=== PATIENT | female | born 1990 | race Caucasian/White ===

== ENCOUNTER 2016-08-09 02:03 | Inpatient (IN) | payer BC ==
[2016-08-09 02:40] VITALS: BP 127/94
[2016-08-09] MEDS ORDERED: HYDROmorphone 1 mg/mL 1mL Syr IVP PRN (02:46)
[2016-08-09] MEDS: Sodium Chloride 0.9% 1,000 ML IV SCH ×2 (03:13→16:16)
[2016-08-09] MEDS ORDERED: Ampicillin 2 GM in Sodium Chloride 0.9% 100 ML IV SCH (05:00)
[2016-08-09 07:52] LABS: INR 0.99 (0.5-1.4); PROTHROMBIN TIME (TEST) 10.3 SECONDS (9.5-11.5)
[2016-08-09 07:53] LABS: ALB/GLOB RATIO 1.1 (1.0-1.8); ALKALINE PHOSPHATASE 64 U/L (34-104); BILIRUBIN,TOTAL 0.6 mg/dL (0.3-1.0); BUN - UREA NITROGEN 13 mg/dL (7-25); BUN/CREATININE RATIO 18.6; CALCIUM SERUM 8.9 mg/dL (8.6-10.3); CARBON DIOXIDE 26.7 mEq/L (21.0-31.0); CHLORIDE 108 mEq/L (98-107); CREATININE - SERUM 0.7 mg/dL (0.6-1.2); GLUCOSE 98 mg/dL (70-105); POTASSIUM SERUM 3.7 mEq/L (3.5-5.1); SGOT 16 U/L (13-39); SGPT/ALT 14 U/L (7-52); SODIUM SERUM 139 mEq/L (136-145)
[2016-08-09 07:59] LABS: % BASOPHILS 0.5 % (0.0-2.0); % EOSINOPHILS 2.7 % (0.0-5.0); % LYMPHOCYTES 23.2 % (20.0-50.0); % MONOCYTES 11.8 % (2.0-10.0); % NEUTROPHILS 61.8 % (40.0-80.0); HEMATOCRIT 38.5 % (35.0-45.0); HEMOGLOBIN 12.9 gm/dL (11.7-15.5); MEAN CELL VOLUME 92.2 fl (81-100); MEAN CORPUSCULAR HEMOGLOBIN 30.8 pg (27.0-31.0); MEAN CORPUSCULAR HGB CONC 33.4 pg (28.0-36.0); MEAN PLATELET VOLUME 9.7 fl; PLATELET COUNT 311 Th/cmm (150-400); RED BLOOD COUNT 4.18 Mil/cmm (3.80-5.10); RED CELL DISTRIBUTION WIDTH 13.4 % (11.5-20.0); WHITE BLOOD COUNT 8.1 Th/cmm (4.8-10.8)
[2016-08-09] MEDS: HYDROmorphone 1 mg/mL 1mL Syr IVP PRN ×4 (08:47→23:30)
[2016-08-09] MEDS ORDERED: Meperidine 25 mg/mL 1mL Syr IVP PRN (10:43)
[2016-08-09] MEDS ORDERED: Lactated Ringer 1,000 ML IV SCH (10:45)
[2016-08-09] MEDS ORDERED: Midazolam 1mg/ml 2 ml vial IV ONE (10:46)
[2016-08-09] MEDS ORDERED: Meperidine 50 mg/mL 1mL Syr ONE ×2 (10:47→12:18)
[2016-08-09] MEDS ORDERED: Lidocaine 2% Gel 5 mL TP ONE (10:48)
[2016-08-09] MEDS ORDERED: Bupivacaine 0.5% W/Ep 10 mL Vial INJ ONE (10:50)
[2016-08-09] MEDS ORDERED: Neostigmine 10mg/10mL Vial ONE (11:45)
--- NOTE | 2016-08-09 12:03 | History & Physical ---
ADMIT DATE: 08/09/2016 CHIEF COMPLAINT: Right lower abdominal pain. HISTORY OF PRESENT ILLNESS: This is the case of 26-year-old female who referred that 2 months ago she was 1 week at [facility] where she was treated for the same pain. She had treatment with antibiotic. When she left the hospital, everything was fine. Yesterday she started with the same pain, reason why she went to Emergency Room for evaluation and treatment. When she was evaluated, CT scan was done and CT scan reported was soft tissue density and fat adjacent to the appendix ____ for preparation, ____ appendicitis. No ____ abscess identified. No extraluminal gas, no bowel obstruction. UD in place, not obstructive left renal stone and no hydronephrosis. When they diagnosed appendicitis, the patient was transferred to the hospital to continue treatment. PAST MEDICAL HISTORY: Unremarkable. SOCIAL HISTORY: The patient denies illegal use of drugs. The patient lives at home with family. PAST SURGICAL HISTORY: None. ALLERGIES: No known allergies. MEDICATIONS: None. REVIEW OF SYSTEMS: LUNGS: The patient denies shortness of breath. HEART: The patient denies chest pain. ABDOMEN: The patient referred right lower abdominal pain. EXTREMITIES: No edema. NEUROLOGIC: The patient is awake, alert. PHYSICAL EXAMINATION: GENERAL: Does reveal a fairly nourished and developed female, awake, alert, in some distress secondary to abdominal pain. LUNGS: Bilateral air entry. No wheezing, no crackles. HEART: Regular rate and rhythm. ABDOMEN: Soft and tender on palpation in her right lower abdomen. Bowel sound is present. EXTREMITIES: No edema. NEUROLOGICAL: The patient is awake, alert. Nerves 2-12 grossly intact. IMPRESSION: Appendicitis. PLAN: 1. The patient will be admitted in the medical surgical floor. 2. IV normal saline. 3. Ampicillin. 4. Dilaudid for pain control. 5. NPO. 6. Consult with Dr. Oneal, surgeon. 7. CBC, CMP, INR and PT at a.m. JOB# [id number]
--- NOTE | 2016-08-09 12:51 | Consultation ---
DATE OF CONSULTATION: 08/09/2016 REFERRING PHYSICIAN: Dr. Mena. REASON FOR CONSULTATION: Abdominal pain. Thank you for referring this patient to me. HISTORY OF PRESENT ILLNESS: A 26-year-old female who started having abdominal pain in the last 24 hours associated nausea and vomiting. No diarrhea. The patient went to [facility] in [place] and underwent a CT scan of the abdomen, which was reported as possible perforated appendicitis. She was sent to this facility for admission. She claims that 2 months ago, she was at [facility] in [place] for similar episode and was kept 5 days in the hospital with IV antibiotics to resolve what was diagnosed then as well as acute appendicitis. PAST MEDICAL HISTORY: Unremarkable. She has one child. ALLERGIES TO MEDICATION: None. PHYSICAL EXAMINATION: Tender in the right lower quadrant with minimal rebound. LABORATORY TESTS: Repeated here at this facility were essentially normal. test is negative. Informed consent discussed with the patient and the boyfriend regarding possible complications, particularly if perforation is encountered. This might include bleeding, infection, peritonitis, adhesions, others related to anesthesia. [facility]# [id number]
[2016-08-09] MEDS ORDERED: Meperidine 25 mg/mL 1mL Syr ONE (12:54)
--- NOTE | 2016-08-09 13:00 | Operative Report ---
DATE OF SURGERY: 08/09/2016 PREOPERATIVE DIAGNOSES: 1. Acute appendicitis. 2. Obesity. 3. Status post appendectomy. 4. Autoimmune disease. POSTOPERATIVE DIAGNOSES: 1. Acute appendicitis. 2. Obesity. 3. Status post appendectomy. 4. Autoimmune disease. OPERATION DONE: Laparoscopic appendectomy. SURGEON: Kimmy Holland M.D. ANESTHESIA: General. ANESTHESIOLOGIST: Leyla Orta. Informed consent discussed with the patient prior to surgery. OPERATIVE FINDINGS: Inflamed appendix with no free perforation. There was, however, some blood in the area of the appendix. The etiology of this is unclear. Culture will be done of the appendix removed. DESCRIPTION OF PROCEDURE: The patient was given general anesthesia. The abdomen was prepped with ChloraPrep and draped in appropriate manner. An incision was made below the umbilicus all the way to the fascia and a Veress needle was inserted. Insufflation with CO2 was carried out successfully. A 10 mm trocar was placed through this incision. The scope was introduced. There was good visualization of the intra-abdominal cavity. A 5 mm trocar was placed in the midline at the lower abdomen and another 12 mm trocar was placed in the left flank. The operating table was lowered at the head and turned to the left side. The appendix was easily identified. This was inflamed, but no perforation was noted. The mesoappendix was serially transected utilizing EnSeal and the appendix was transected utilizing Endo MICHELLE. The staple line was checked and no bleeding was noted. Irrigation with saline solution was carried out. Cultures were taken of the appendix removed. The incision was closed with interrupted sutures of 0 Vicryl for the fascia. The abdominal incision was closed with 4-0 Vicryl following infiltration of 0.5% Marcaine. The patient tolerated the procedure well. JOB# [id number]
--- NOTE | 2016-08-09 22:44 | Admit Criteria Form ---
Admit Criteria Forms - Admit Criteria Diagnosis: ABDOMINAL PAIN Clinical Indications for Admission to Inpatient Care (Place 'X' for any and all applicable criteria): Admission is indicated for ANY ONE of the following(1)(2)(3)(4)(5): [ ]I. Inpatient admission required rather than observation care (Also use Abdominal Pain: Observation Care, as appropriate) because of ANY ONE of the following: [ ]a) Severe pain requiring acute inpatient management [ ]b) Identification of etiology/finding that requires inpatient care (eg, aortic dissection, free air) [ ]c) Absent bowel sounds with complete ileus(6) [ ]d) Suspected toxic megacolon [ ]e) Severe electrolyte abnormalities requiring inpatient care [ ]f) High fever or infection requiring inpatient admission as indicated by ANY ONE of following(7)(8): [ ] i) Appropriate outpatient or observational care antimicrobial treatment unavailable, not effective, or not feasible [ ] ii) Documented bacteremia [ ] iii) Temperature > 104.9 degrees F (oral) [ ] iv) T >103.1 F (oral) or < 96.8 F(rectal) that does not respond to all emergency treatment measures [ ]g) Signs of intestinal obstruction [B] [ ]h) Hemodynamic instability [ ]i) IV fluid to replace significant ongoing losses (greater than 3 L/m2 per day) (12)(13) [ ]j) Percutaneous or open drainage (eg, abscess, biliary tract ) procedures [ ]k) Parenteral nutrition regimen that must be implemented on inpatient basis [ ]l) Other condition,treatment or monitoring requiring inpatient admission. [ ]II. Peritoneal signs present [X]III. Surgery needed that cannot be performed on an ambulatory basis. [ ]IV. Evaluation requires patient to not eat or drink for extended period ( eg, more than 24 hours). [ ]V. Contraindications and/or Inappropriate clinical situations for Observational Care in patients with abdominal pain, when ANY ONE of the following is required: [ ]a) Thorough evaluation is required to prevent catastrophic events due to delays in diagnosing (e.g.Mesenteric ischemia) 1,3 [ ]b) Patient with severe pathology or with chronic symptoms unlikely to improve in the ED stay (3) [ ]. General contraindications and/or Inappropriate clinical situations for Observational Care in patients with abdominal pain, when ANY ONE of the following is required: [ ]a) Prediction of prolongation of LOS based on ANY ONE of the following may be considered as a contraindication for observational care 2, 3, 4, 5, 6, 7, 8, 9, 10, 11 [ ]i) Age > 65 yrs. [ ]ii) Patient arriving by ambulance [ ]iii) Patient with high acuity [ ]iv) Patient requiring vital sign monitoring [ ]v) Patient on IV medication [ ]b) Systolic blood pressures 180mmHg 3,12 [ ]c) Patient with altered mental status including delirium and other alteration of consciousness, (3) [ ]d) Patient whose discharge disposition will be to a fdc home or rehabilitation home should not be managed in Emergency Department Observation Unit. CMS rule requires 3 days hospital stay before such placement.3,13 [ ]e) Patient with failure to thrive due to broad array of etiologies 3,16,17 [ ]f) Inability to ambulate 3,14 Extended stay beyond goal length of stay may be needed for(2)(3): [ ]a) Persistent abdominal pain with suspected intra-abdominal process [ ]b) Diagnosed condition requiring continued stay (e.g., pancreatitis, complicated diverticulitis) [ ]c) Surgery (e.g., colectomy) The original [facility] content created by [employer] has been revised. The portions of the content which have been revised are identified through the use of italic text or in bold, and [facility] has neither reviewed nor approved the modified material.All other unmodified content is copyright [facility] [employer] [facility]. Please see references footnoted in the original [facility] [employer] edition 2016 Admit Criteria Met?: Yes
[2016-08-10] MEDS: HYDROmorphone 1 mg/mL 1mL Syr IVP PRN ×2 (03:53→08:03)
[2016-08-10 06:20] LABS: HEMATOCRIT 38.2 % (35.0-45.0); HEMOGLOBIN 12.7 gm/dL (11.7-15.5); MEAN CELL VOLUME 92.1 fl (81-100); MEAN CORPUSCULAR HEMOGLOBIN 30.7 pg (27.0-31.0); MEAN CORPUSCULAR HGB CONC 33.3 pg (28.0-36.0); MEAN PLATELET VOLUME 9.7 fl; PLATELET COUNT 254 Th/cmm (150-400); RED BLOOD COUNT 4.14 Mil/cmm (3.80-5.10)
[2016-08-10 06:32] LABS: ALB/GLOB RATIO 1.1 (1.0-1.8); ALKALINE PHOSPHATASE 69 U/L (34-104); ANION GAP 6.4 (7.0-16.0); BILIRUBIN,TOTAL 0.7 mg/dL (0.3-1.0); BUN - UREA NITROGEN 9 mg/dL (7-25); BUN/CREATININE RATIO 12.9; CALCIUM SERUM 8.9 mg/dL (8.6-10.3); CARBON DIOXIDE 29.3 mEq/L (21.0-31.0); CHLORIDE 104 mEq/L (98-107); CREATININE - SERUM 0.7 mg/dL (0.6-1.2); GLUCOSE 94 mg/dL (70-105); POTASSIUM SERUM 3.7 mEq/L (3.5-5.1); SGOT 15 U/L (13-39); SGPT/ALT 13 U/L (7-52); SODIUM SERUM 136 mEq/L (136-145)
[2016-08-10 07:46] LABS: EOSINOPHIL 2 % (0-5); NEUTROPHILS 69 % (40-80); PLATELET ESTIMATE ADEQUATE (NORMAL); PLATELET MORPHOLOGY GIANT PLATELETS SEEN (NORMAL); TOTAL CELLS COUNTED 100
--- NOTE | 2016-08-10 09:10 | General Progress Note ---
Subjective - Review of Systems Service Date: 08/10/16 Subjective: I am better Objective - Results Result Diagrams: 08/10/16 05:26 08/10/16 05:26 Recent Labs: Laboratory Last Values WBC 9.0 Th/cmm (4.8-10.8) 08/10/16 05:26 RBC 4.14 Mil/cmm (3.80-5.10) 08/10/16 05:26 Hgb 12.7 gm/dL (11.7-15.5) 08/10/16 05:26 Hct 38.2 % (35.0-45.0) 08/10/16 05:26 MCV 92.1 fl (81-100) 08/10/16 05:26 MCH 30.7 pg (27.0-31.0) 08/10/16 05:26 MCHC Differential 33.3 pg (28.0-36.0) 08/10/16 05:26 RDW 13.0 % (11.5-20.0) 08/10/16 05:26 Plt Count 254 Th/cmm (150-400) 08/10/16 05:26 MPV 9.7 fl 08/10/16 05:26 Neutrophils % 61.8 % (40.0-80.0) 08/09/16 07:10 Lymphocytes % 23.2 % (20.0-50.0) 08/09/16 07:10 Monocytes % 11.8 % (2.0-10.0) H 08/09/16 07:10 Eosinophils % 2.7 % (0.0-5.0) 08/09/16 07:10 Basophils % 0.5 % (0.0-2.0) 08/09/16 07:10 Neutrophils (Manual) 69 % (40-80) 08/10/16 05:26 Lymphocytes 18 % (20-50) L 08/10/16 05:26 Monocytes 11 % (2-10) H 08/10/16 05:26 Eosinophils 2 % (0-5) 08/10/16 05:26 Platelet Estimate ADEQUATE (NORMAL) 08/10/16 05:26 Platelet Morphology GIANT PLATELETS SEEN (NORMAL) 08/10/16 05:26 RBC Morph Micro Appear NORMAL (NORMAL) 08/10/16 05:26 PT 10.3 SECONDS (9.5-11.5) 08/09/16 07:10 INR 0.99 (0.5-1.4) 08/09/16 07:10 Sodium 136 mEq/L (136-145) 08/10/16 05:26 Potassium 3.7 mEq/L (3.5-5.1) 08/10/16 05:26 Chloride 104 mEq/L (98-107) 08/10/16 05:26 Carbon Dioxide 29.3 mEq/L (21.0-31.0) 08/10/16 05:26 Anion Gap 6.4 (7.0-16.0) L 08/10/16 05:26 BUN 9 mg/dL (7-25) 08/10/16 05:26 Creatinine 0.7 mg/dL (0.6-1.2) 08/10/16 05:26 Est GFR ( Amer) > 60.0 ml/min (>90) 08/10/16 05:26 Est GFR (Non-Af Amer) > 60.0 ml/min 08/10/16 05:26 BUN/Creatinine Ratio 12.9 08/10/16 05:26 Glucose 94 mg/dL (70-105) 08/10/16 05:26 Calcium 8.9 mg/dL (8.6-10.3) 08/10/16 05:26 Total Bilirubin 0.7 mg/dL (0.3-1.0) 08/10/16 05:26 AST 15 U/L (13-39) 08/10/16 05:26 ALT 13 U/L (7-52) 08/10/16 05:26 Alkaline Phosphatase 69 U/L (34-104) 08/10/16 05:26 Total Protein 6.7 gm/dL (6.0-8.3) 08/10/16 05:26 Albumin 3.5 gm/dL (3.7-5.3) L 08/10/16 05:26 Globulin 3.2 gm/dL 08/10/16 05:26 Albumin/Globulin Ratio 1.1 (1.0-1.8) 08/10/16 05:26 Serum , Qual NEGATIVE (NEGATIVE) 08/09/16 07:10 - Physical Exam Vitals and I&O: Vital Signs Temp 97.9 F 08/10/16 04:00 Pulse 68 08/10/16 04:00 Resp 20 08/10/16 04:00 BP 108/63 08/10/16 04:00 Pulse Ox 95 08/10/16 04:00 Intake & Output 08/09/16 08/10/16 08/10/16 18:59 06:59 18:59 Intake Total 1178.75 200 Balance 1178.75 200 Intake: Intake, IV Amount 1178.75 200 Ampicillin 2 gm In Sodium 200 200 Chloride 0.9% 100 ml @ 100 mls/hr IV Q6H COUNT INCLUDES THE [facility] Rx# :[id number] Sodium Chloride 0.9% 1, 978.75 000 ml @ 75 mls/hr IV . [id number] COUNT INCLUDES THE [facility] Rx#:[id number] Active Medications: Current Medications Acetaminophen (Tylenol 650mg Supp) 650 mg RC Q6H PRN PRN Reason: Pain (Moderate) Stop: 10/08/16 02:45 Hydromorphone HCl (Dilaudid) 1 mg IVP Q4HR PRN PRN Reason: Pain (Severe) Stop: 10/08/16 02:45 Last Admin: 08/10/16 08:03 Dose: 1 mg Sodium Chloride (Nacl 0.9%) 1,000 mls @ 75 mls/hr IV .[id number] CORNELIA Stop: 10/08/16 02:04 Last Admin: 08/09/16 16:16 Dose: 75 mls/hr Ampicillin 2 gm/ Sodium (Chloride) 100 mls @ 100 mls/hr IV Q6H [place] Stop: 10/08/16 07:59 Last Admin: 08/10/16 08:03 Dose: 100 mls/hr Lactated Ringer's (Lactated Ringer) 1,000 mls @ 0 mls/hr IV .Q0M CORNELIA PRN Reason: TKO Stop: 08/10/16 10:44 Meperidine HCl (Demerol) 12.5 mg IVP UD PRN PRN Reason: POST-OP PAIN Stop: 08/10/16 10:42 General: Alert, Oriented x3, Cooperative, No acute distress HEENT: Atraumatic Neck: Supple Cardiovascular: Regular rate Lungs: Clear to auscultation Abdomen: Bowel sounds, Soft, Other (Surgical wound clran) Extremities: Other (No edema) Neurological: Normal gait Skin: Other (Warm and dry) Psych/Mental Status: Mental status NL - Procedures Procedures: Procedures Procedure Code Date LAPAROSCOPY APPENDECTOMY 90149 08/09/16 RESECTION OF APPENDIX, PERCUTANEOUS ENDOSCOPIC APPROACH [id number] 08/09/16 Assessment/Plan - Assessment Assessment: Patient is awake, alert, calm in no acute distress. Patient is eating and passing gas. - Plan Plan: Patient will be DC is Dr. Oneal is agree.
--- NOTE | 2016-08-10 13:18 | General Progress Note ---
Subjective - Review of Systems Service Date: 08/10/16 Events since last encounter: labs ok, may DC Objective - Results Result Diagrams: 08/10/16 05:26 08/10/16 05:26 Recent Labs: Laboratory Last Values WBC 9.0 Th/cmm (4.8-10.8) 08/10/16 05:26 RBC 4.14 Mil/cmm (3.80-5.10) 08/10/16 05:26 Hgb 12.7 gm/dL (11.7-15.5) 08/10/16 05:26 Hct 38.2 % (35.0-45.0) 08/10/16 05:26 MCV 92.1 fl (81-100) 08/10/16 05:26 MCH 30.7 pg (27.0-31.0) 08/10/16 05:26 MCHC Differential 33.3 pg (28.0-36.0) 08/10/16 05:26 RDW 13.0 % (11.5-20.0) 08/10/16 05:26 Plt Count 254 Th/cmm (150-400) 08/10/16 05:26 MPV 9.7 fl 08/10/16 05:26 Neutrophils % 61.8 % (40.0-80.0) 08/09/16 07:10 Lymphocytes % 23.2 % (20.0-50.0) 08/09/16 07:10 Monocytes % 11.8 % (2.0-10.0) H 08/09/16 07:10 Eosinophils % 2.7 % (0.0-5.0) 08/09/16 07:10 Basophils % 0.5 % (0.0-2.0) 08/09/16 07:10 Neutrophils (Manual) 69 % (40-80) 08/10/16 05:26 Lymphocytes 18 % (20-50) L 08/10/16 05:26 Monocytes 11 % (2-10) H 08/10/16 05:26 Eosinophils 2 % (0-5) 08/10/16 05:26 Platelet Estimate ADEQUATE (NORMAL) 08/10/16 05:26 Platelet Morphology GIANT PLATELETS SEEN (NORMAL) 08/10/16 05:26 RBC Morph Micro Appear NORMAL (NORMAL) 08/10/16 05:26 PT 10.3 SECONDS (9.5-11.5) 08/09/16 07:10 INR 0.99 (0.5-1.4) 08/09/16 07:10 Sodium 136 mEq/L (136-145) 08/10/16 05:26 Potassium 3.7 mEq/L (3.5-5.1) 08/10/16 05:26 Chloride 104 mEq/L (98-107) 08/10/16 05:26 Carbon Dioxide 29.3 mEq/L (21.0-31.0) 08/10/16 05:26 Anion Gap 6.4 (7.0-16.0) L 08/10/16 05:26 BUN 9 mg/dL (7-25) 08/10/16 05:26 Creatinine 0.7 mg/dL (0.6-1.2) 08/10/16 05:26 Est GFR ( Amer) > 60.0 ml/min (>90) 08/10/16 05:26 Est GFR (Non-Af Amer) > 60.0 ml/min 08/10/16 05:26 BUN/Creatinine Ratio 12.9 08/10/16 05:26 Glucose 94 mg/dL (70-105) 08/10/16 05:26 Calcium 8.9 mg/dL (8.6-10.3) 08/10/16 05:26 Total Bilirubin 0.7 mg/dL (0.3-1.0) 08/10/16 05:26 AST 15 U/L (13-39) 08/10/16 05:26 ALT 13 U/L (7-52) 08/10/16 05:26 Alkaline Phosphatase 69 U/L (34-104) 08/10/16 05:26 Total Protein 6.7 gm/dL (6.0-8.3) 08/10/16 05:26 Albumin 3.5 gm/dL (3.7-5.3) L 08/10/16 05:26 Globulin 3.2 gm/dL 08/10/16 05:26 Albumin/Globulin Ratio 1.1 (1.0-1.8) 08/10/16 05:26 Serum , Qual NEGATIVE (NEGATIVE) 08/09/16 07:10 - Physical Exam Vitals and I&O: Vital Signs Temp 98.2 F 08/10/16 08:00 Pulse 72 08/10/16 08:00 Resp 19 08/10/16 08:00 BP 121/66 08/10/16 08:00 Pulse Ox 100 08/10/16 08:00 Intake & Output 08/09/16 08/10/16 08/10/16 18:59 06:59 18:59 Intake Total 1178.75 200 Balance 1178.75 200 Intake: Intake, IV Amount 1178.75 200 Ampicillin 2 gm In Sodium 200 200 Chloride 0.9% 100 ml @ 100 mls/hr IV Q6H [facility] Rx# :[id number] Sodium Chloride 0.9% 1, 978.75 000 ml @ 75 mls/hr IV . [id number] [facility] Rx#:[id number] Active Medications: Current Medications Acetaminophen (Tylenol 650mg Supp) 650 mg RC Q6H PRN PRN Reason: Pain (Moderate) Stop: 10/08/16 02:45 Ampicillin 2 gm/ Sodium (Chloride) 100 mls @ 100 mls/hr IV Q6H [facility] Stop: 10/08/16 07:59 Last Admin: 08/10/16 08:03 Dose: 100 mls/hr Ibuprofen (Motrin) 800 mg PO TIDWM [facility] Stop: 10/09/16 11:59 Last Admin: 08/10/16 12:37 Dose: 800 mg - Procedures Procedures: Procedures Procedure Code Date LAPAROSCOPY APPENDECTOMY 11340 08/09/16 RESECTION OF APPENDIX, PERCUTANEOUS ENDOSCOPIC APPROACH [id number] 08/09/16
--- NOTE | 2016-08-10 13:29 | Pathology Report ---
[id number] Collection Date: 08/09/2016 Surgeon: Dr. Anjum Oneal Specimen Description: Appendix Gross Description: Received in formalin is a 6 cm in length x 1.0 cm in diameter appendix with a slightly indurated giraldo-brownlee outer surface. A small portion of attached fatty tissue is also appreciated. Sectioning shows an intact appendix wall and lumen with focal fibrous adhesions noted on the outer surface of the specimen. Night Order Selector sections are submitted in two cassettes labeled A1 and A2. Microscopic Description: The histologic sections show appendix with intact wall and lumen. There is acute and chronic inflammation seen in patchy areas throughout the appendix with most of the acute inflammation appreciated on the outer peritoneal surface where there are fibrous adhesions. Diagnosis: Acute appendicitis. [facility]# [id number] [facility]
== END 2016-08-10 14:00 | disposition home or self-care (01) | DRG 342 ==
LOC: TELE 02:03 → MSI 07:38
PROVIDERS: ADMIT General Practice; ATTEND General Practice
PROC: 0DTJ4ZZ Resection of Appendix, Percutaneous Endoscopic Approach (ICD-10-PCS; principal; 2016-08-09)
DX: K35.80 Unspecified acute appendicitis (principal); Z68.41 Body mass index [BMI] 40.0-44.9, adult; E66.9 Obesity, unspecified; M35.9 Systemic involvement of connective tissue, unspecified
CPT/HCPCS: 36415-UA; 80053-TC; 81025-TC; 85007-TC; 85025-TC; 85027-TC; 85610-TC; 87070-90; 87075-90; 87205-90; 90799; 96372; J0290; J0295; J1170; J2250; J2405; J2704; J2710; J7030; X6024; X6026; X6258; Z7610